=== PATIENT | male | born 1955 | race Caucasian/White ===

== ENCOUNTER 2017-09-04 19:13 | Emergency (ER) | payer OTHER ==
[~2017-09-04] VITALS: Ht 182.9 cm; Wt 93.0 kg
[2017-09-04 19:25] VITALS: BP 180/95; PULSE 75; RESP 18; O2SAT 98
[2017-09-04] MEDS ORDERED: GABA600T PO (19:35)
[2017-09-04] MEDS ORDERED: MORP-43 PO (19:35)
[2017-09-04] MEDS ORDERED: HYDR-3583 PO (19:35)
--- NOTE | 2017-09-04 19:47 | PD ---
HPI Chief Complaint: Psychiatric Symptoms Time Seen by Provider: 19:30 Travel History International Travel<30 days: No Contact w/Intl Traveler<30days: No Traveled to known affect area: No History of Present Illness HPI 62-year-old white male presents emergency department under Gutierrez act by PD. Patient was found sitting in his car crying. He had just had an argument with his ex-. They were attempting to rekindled their relationship but unfortunately this was one-sided. The patient states that he did not take any overdose. According to the Gutierrez act the patient had taken additional medications unknown drug and unknown amount. The patient here does admit to taking 2 of his hydrocodone 10 mg, ibuprofen and Tylenol. He denies that this was a overdose. He does admit to feeling depressed and having a "broken heart" . Patient is disabled and has chronic pain. He takes MS Contin 50 mg twice daily, 10 mg hydrocodone 4 times daily, 600 mg of Neurontin 3 times daily as well as amlodipine 5 mg. PFSH Past Medical History Narrative Medical Hypertension, chronic back pain, chronic knee pain Depression: Yes Diminished Hearing: No Hypertension: Yes Musculoskeletal: Yes (DDD) Neurologic: Yes (NEUROPATHY) Tetanus Vaccination: > 5 Years Past Surgical History Joint Replacement: Yes (BILAT TOTAL KNEES 2016, ) Oral Surgery: Yes (S1 L5 SPINAL FUSION, BILAT TOTAL KNEE) Social History Alcohol Use: Yes (OCCASSIONALLY ) Tobacco Use: No Substance Use: No Allergies-Medications (Allergen,Severity, Reaction): Coded Allergies: No Known Allergies (Unverified , 09/04/17) Reported Meds & Prescriptions Reported Meds & Active Scripts Active Reported Hydrocodone-Acetaminophen 10-325 mg Tab 1 Tab PO Q4H PRN Gabapentin 600 Mg Tab 600 Mg PO TID Morphabond ER 12 HR (Morphine Sulfate) 15 Mg Tab 15 Mg PO Q12H Review of Systems General / Constitutional: No: Fever Eyes: No: Visual changes HENT: Positive: Neck Pain, No: Headaches Cardiovascular: No: Chest Pain or Discomfort Respiratory: No: Shortness of Breath Gastrointestinal: No: Abdominal Pain Genitourinary: No: Dysuria Musculoskeletal: Positive: Arthralgias, Pain Skin: No Rash Neurologic: No: Weakness Psychiatric: Positive: Depression, Mood Disorder, No: Anxiety, Suicidal Ideations, Disorder of Thought, Substance Abuse, Homicidal Ideation Endocrine: No: Polydipsia Hematologic/Lymphatic: No: Easy Bruising Physical Exam Narrative GENERAL: Well-nourished, well-developed patient. SKIN: Warm and dry. HEAD: Normocephalic and atraumatic. EYES: No scleral icterus. No injection or drainage. ENT: No nasal drainage noted. Mucous membranes pink. Airway patent. NECK: Supple, trachea midline. Moves head freely without obvious discomfort. CARDIOVASCULAR: Regular rate and rhythm without murmurs, gallops, or rubs. RESPIRATORY: Breath sounds equal bilaterally. No accessory muscle use. GASTROINTESTINAL: Abdomen soft, non-tender, nondistended. EXTREMITIES: No cyanosis or edema. BACK: Nontender without obvious deformity. No CVA tenderness. NEURO: Patient is alert and oriented. no sensorimotor deficits. Nonfocal. Normal speech. PSYCH: No delusions. No auditory or visual hallucinations. Data Data Last Documented VS Vital Signs Date Time Temp Pulse Resp B/P (MAP) Pulse Ox O2 Delivery O2 Flow Rate FiO2 09/04/17 20:41 153/94 (113) 09/04/17 19:25 75 18 98 Orders Orders Complete Blood Count With Diff (09/04/17 19:31) Comprehensive Metabolic Panel (09/04/17 19:31) Thyroid Stimulating Hormone (09/04/17 19:31) Psych Screen (09/04/17 19:31) Drug Screen, Random Urine (09/04/17 19:31) Alcohol (Ethanol) (09/04/17 19:31) Salicylates (Aspirin) (09/04/17 19:31) Tylenol (Acetaminophen) (09/04/17 19:31) Labs Laboratory Tests Test 09/04/17 19:38 09/04/17 19:50 White Blood Count 10.6 TH/MM3 Red Blood Count 5.34 MIL/MM3 Hemoglobin 14.6 GM/DL Hematocrit 44.2 % Mean Corpuscular Volume 82.8 FL Mean Corpuscular Hemoglobin 27.4 PG Mean Corpuscular Hemoglobin Concent 33.1 % Red Cell Distribution Width 13.8 % Platelet Count 229 TH/MM3 Mean Platelet Volume 7.7 FL Neutrophils (%) (Auto) 70.5 % Lymphocytes (%) (Auto) 23.4 % Monocytes (%) (Auto) 5.7 % Eosinophils (%) (Auto) 0.3 % Basophils (%) (Auto) 0.1 % Neutrophils # (Auto) 7.4 TH/MM3 Lymphocytes # (Auto) 2.5 TH/MM3 Monocytes # (Auto) 0.6 TH/MM3 Eosinophils # (Auto) 0.0 TH/MM3 Basophils # (Auto) 0.0 TH/MM3 CBC Comment DIFF FINAL Differential Comment Blood Urea Nitrogen 14 MG/DL Creatinine 1.01 MG/DL Random Glucose 128 MG/DL Total Protein 8.2 GM/DL Albumin 4.5 GM/DL Calcium Level 9.2 MG/DL Alkaline Phosphatase 81 U/L Aspartate Amino Transf (AST/SGOT) 18 U/L Alanine Aminotransferase (ALT/SGPT) 21 U/L Total Bilirubin 1.0 MG/DL Sodium Level 140 MEQ/L Potassium Level 4.0 MEQ/L Chloride Level 105 MEQ/L Carbon Dioxide Level 26.6 MEQ/L Anion Gap 8 MEQ/L Estimat Glomerular Filtration Rate 75 ML/MIN Thyroid Stimulating Hormone 3rd Gen 1.810 uIU/ML Salicylates Level LESS THAN 1.7 MG/DL Acetaminophen Level 18.7 MCG/ML Ethyl Alcohol Level LESS THAN 3 MG/DL Urine Opiates Screen POS Urine Barbiturates Screen NEG Urine Amphetamines Screen NEG Urine Benzodiazepines Screen NEG Urine Cocaine Screen NEG Urine Cannabinoids Screen NEG MDM Medical Decision Making Medical Screen Exam Complete: Yes Emergency Medical Condition: Yes Medical Record Reviewed: Yes Interpretation(s) Laboratory Tests Test 09/04/17 19:38 09/04/17 19:50 White Blood Count 10.6 TH/MM3 Red Blood Count 5.34 MIL/MM3 Hemoglobin 14.6 GM/DL Hematocrit 44.2 % Mean Corpuscular Volume 82.8 FL Mean Corpuscular Hemoglobin 27.4 PG Mean Corpuscular Hemoglobin Concent 33.1 % Red Cell Distribution Width 13.8 % Platelet Count 229 TH/MM3 Mean Platelet Volume 7.7 FL Neutrophils (%) (Auto) 70.5 % Lymphocytes (%) (Auto) 23.4 % Monocytes (%) (Auto) 5.7 % Eosinophils (%) (Auto) 0.3 % Basophils (%) (Auto) 0.1 % Neutrophils # (Auto) 7.4 TH/MM3 Lymphocytes # (Auto) 2.5 TH/MM3 Monocytes # (Auto) 0.6 TH/MM3 Eosinophils # (Auto) 0.0 TH/MM3 Basophils # (Auto) 0.0 TH/MM3 CBC Comment DIFF FINAL Differential Comment Blood Urea Nitrogen 14 MG/DL Creatinine 1.01 MG/DL Random Glucose 128 MG/DL Total Protein 8.2 GM/DL Albumin 4.5 GM/DL Calcium Level 9.2 MG/DL Alkaline Phosphatase 81 U/L Aspartate Amino Transf (AST/SGOT) 18 U/L Alanine Aminotransferase (ALT/SGPT) 21 U/L Total Bilirubin 1.0 MG/DL Sodium Level 140 MEQ/L Potassium Level 4.0 MEQ/L Chloride Level 105 MEQ/L Carbon Dioxide Level 26.6 MEQ/L Anion Gap 8 MEQ/L Estimat Glomerular Filtration Rate 75 ML/MIN Thyroid Stimulating Hormone 3rd Gen 1.810 uIU/ML Salicylates Level LESS THAN 1.7 MG/DL Acetaminophen Level 18.7 MCG/ML Ethyl Alcohol Level LESS THAN 3 MG/DL Urine Opiates Screen POS Urine Barbiturates Screen NEG Urine Amphetamines Screen NEG Urine Benzodiazepines Screen NEG Urine Cocaine Screen NEG Urine Cannabinoids Screen NEG Differential Diagnosis MDM: High Differential diagnoses: Schizophrenia, schizoaffective disorder, bipolar, anxiety, depression, adjustment reaction, mood disorder NOS, ODD, depressive disorder NOS, dementia, dementia with agitation, psychosis NOS, substance induced mood disorder, DMDD, Asperger syndrome, infection,electrolyte abnormality, malingering. Narrative Course Mental health screening discussed with the patient. Psychiatric screen ordered. Patient does not appear to be somnolent anyway. His Tylenol and aspirin are negative. I see no other drugs on his tox screen. Normal liver functions. This is a nontoxic overdose. He has been medically cleared. This is medical clearance for psychiatric admission, nontoxic overdose. Diagnosis Primary Impression: Medical clearance for psychiatric admission Additional Impression: Nontoxic overdose Condition: Stable Aldo Salvador Sep 04, 2017 19:47
[2017-09-04 20:01] LABS: AUTOMATED NEUTROPHIL # 7.4 TH/MM3 (1.8-7.7); BASOPHIL % 0.1 % (0.0-2.0); EOSINOPHIL % 0.3 % (0.0-4.0); HEMATOCRIT 44.2 % (39.0-51.0); HEMOGLOBIN 14.6 GM/DL (13.0-17.0); LYMPH % 23.4 % (9.0-44.0); LYMPHOCYTE # 2.5 TH/MM3 (1.0-4.8); MEAN CELL VOLUME 82.8 FL (80.0-100.0); MEAN CORPUSCULAR HEMOGLOBIN 27.4 PG (27.0-34.0); MEAN CORPUSCULAR HGB CONC 33.1 % (32.0-36.0); MEAN PLATELET VOLUME 7.7 FL (7.0-11.0); MONO % 5.7 % (0.0-8.0); MONOCYTE # 0.6 TH/MM3 (0-0.9); NEUT % 70.5 % (16.0-70.0); PLATELET COUNT 229 TH/MM3 (150-450); RED BLOOD COUNT 5.34 MIL/MM3 (4.50-5.90); RED CELL DISTRIBUTION WIDTH 13.8 % (11.6-17.2); WHITE BLOOD COUNT 10.6 TH/MM3 (4.0-11.0)
[2017-09-04 20:25] LABS: ALBUMIN 4.5 GM/DL (3.4-5.0); ALT (GPT) 21 U/L (12-78); AST (GOT) 18 U/L (15-37); BICARBONATE 26.6 MEQ/L (21.0-32.0); BLOOD UREA NITROGEN 14 MG/DL (7-18); CALCIUM 9.2 MG/DL (8.5-10.1); CHLORIDE 105 MEQ/L (98-107); CREATININE 1.01 MG/DL (0.60-1.30); GLOMERULAR FILTRATION RATE 75 ML/MIN (>89); GLUCOSE,RANDOM 128 MG/DL (74-106); SODIUM (NA) 140 MEQ/L (136-145)
[2017-09-04 20:35] LABS: ACETAMINOPHEN 18.7 MCG/ML (10.0-30.0); ALKALINE PHOSPHATASE 81 U/L (45-117); TOTAL PROTEIN 8.2 GM/DL (6.4-8.2)
[2017-09-04 20:41] VITALS: BP 153/94
[2017-09-04 21:50] VITALS: BP 155/90; PULSE 69; RESP 18; TEMP 99.1; O2SAT 100
[2017-09-04] MEDS ORDERED: AMLO2.5T PO (22:43)
[2017-09-04] MEDS ORDERED: ACETAMINOPHEN/HYDROcodone 325 MG/10 MG TAB PO ONE (23:45)
[2017-09-05 02:16] VITALS: BP 102/61; PULSE 73; RESP 18; TEMP 98.6; O2SAT 98
[2017-09-05 06:23] VITALS: BP 140/81; PULSE 76; RESP 18; TEMP 98.6; O2SAT 99
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
--- NOTE | 2017-09-05 08:53 | PD ---
Physical Exam Time Seen by Provider: 08:[address] Mena has evaluated patient, lifted be correct and cleared the patient for discharge. Data Data Last Documented VS Vital Signs Date Time Temp Pulse Resp B/P (MAP) Pulse Ox O2 Delivery O2 Flow Rate FiO2 09/05/17 06:23 98.6 76 18 140/81 (100) 99 Room Air Orders Orders Complete Blood Count With Diff (09/04/17 19:31) Comprehensive Metabolic Panel (09/04/17 19:31) Thyroid Stimulating Hormone (09/04/17 19:31) Psych Screen (09/04/17 19:31) Drug Screen, Random Urine (09/04/17 19:31) Alcohol (Ethanol) (09/04/17 19:31) Salicylates (Aspirin) (09/04/17 19:31) Tylenol (Acetaminophen) (09/04/17 19:31) Acetamin-Hydrocod 325-10 Mg (Holly 10-32 (09/04/17 23:45) Diet Regular Basic (09/05/17 Breakfast) Labs Laboratory Tests Test 09/04/17 19:38 09/04/17 19:50 White Blood Count 10.6 TH/MM3 Red Blood Count 5.34 MIL/MM3 Hemoglobin 14.6 GM/DL Hematocrit 44.2 % Mean Corpuscular Volume 82.8 FL Mean Corpuscular Hemoglobin 27.4 PG Mean Corpuscular Hemoglobin Concent 33.1 % Red Cell Distribution Width 13.8 % Platelet Count 229 TH/MM3 Mean Platelet Volume 7.7 FL Neutrophils (%) (Auto) 70.5 % Lymphocytes (%) (Auto) 23.4 % Monocytes (%) (Auto) 5.7 % Eosinophils (%) (Auto) 0.3 % Basophils (%) (Auto) 0.1 % Neutrophils # (Auto) 7.4 TH/MM3 Lymphocytes # (Auto) 2.5 TH/MM3 Monocytes # (Auto) 0.6 TH/MM3 Eosinophils # (Auto) 0.0 TH/MM3 Basophils # (Auto) 0.0 TH/MM3 CBC Comment DIFF FINAL Differential Comment Blood Urea Nitrogen 14 MG/DL Creatinine 1.01 MG/DL Random Glucose 128 MG/DL Total Protein 8.2 GM/DL Albumin 4.5 GM/DL Calcium Level 9.2 MG/DL Alkaline Phosphatase 81 U/L Aspartate Amino Transf (AST/SGOT) 18 U/L Alanine Aminotransferase (ALT/SGPT) 21 U/L Total Bilirubin 1.0 MG/DL Sodium Level 140 MEQ/L Potassium Level 4.0 MEQ/L Chloride Level 105 MEQ/L Carbon Dioxide Level 26.6 MEQ/L Anion Gap 8 MEQ/L Estimat Glomerular Filtration Rate 75 ML/MIN Thyroid Stimulating Hormone 3rd Gen 1.810 uIU/ML Salicylates Level LESS THAN 1.7 MG/DL Acetaminophen Level 18.7 MCG/ML Ethyl Alcohol Level LESS THAN 3 MG/DL Urine Opiates Screen POS Urine Barbiturates Screen NEG Urine Amphetamines Screen NEG Urine Benzodiazepines Screen NEG Urine Cocaine Screen NEG Urine Cannabinoids Screen NEG MDM Supervised Visit with [facility]: No Narrative Course Dr. Mena has evaluated patient, lifted be correct and cleared the patient for discharge. Patient contracts safety. Denies suicidal or homicidal ideations. Patient will be provided community resource packet to /DINESH for follow-up. Has friends and family for support. Patient was medically cleared by alternate provider prior to psych screening. Patient has been evaluated by psychiatry and and is now cleared for discharge. Diagnosis Primary Impression: Nontoxic overdose Referrals: [facility] (Out patient) [facility] Primary Care Physician Psychiatrist Ign[facility] Patient Instructions: General Instructions, Polysubstance Abuse (ED) Additional Instruction: Contract safety to your self and others Follow-up with psychiatry Follow-up with primary care provider Follow-up with Jose Brown Return to the emergency department immediately with worsening of symptoms Med/Other Pt SpecificInfo: No Change to Meds, No Meds Exist/No RX given Disposition: 01 DISCHARGE HOME Condition: Stable Alicia Martinez Sep 05, 2017 08:53
== END 2017-09-05 09:25 | disposition home or self-care (01) ==
LOC: NEPD 19:13 → NEPJ 09-05 09:25
DX: F43.21 Adjustment disorder with depressed mood (principal); I10 Essential (primary) hypertension; G89.29 Other chronic pain
CPT/HCPCS: 80053; 80307; 84443; 85025; 99284